=== PATIENT | female | born 1985 | race Hispanic/Latino ===

== ENCOUNTER → 2017-03-05 | Outpatient (CLI) | payer BC ==
[2017-03-05 15:32] LABS: BASO # 0.1 10^3/uL (0.0-0.2); EOS # 0.1 10^3/uL (0.0-0.50); EOS % 1.7 % (0.0-3.0); IMMATURE GRANULOCYTE % 0.4 % (0-0); LYMPH # 2.3 10^3/uL (1.5-6.5); LYMPH % 29.3 % (24.0-44.0); MEAN CORPUSCULAR HEMOGLOBIN 28.4 pg (27.0-33.0); MEAN CORPUSCULAR HGB CONC 33.4 g/dl (32.0-36.5); MEAN CORPUSCULAR VOLUME 84.9 fl (80.0-96.0); MONO # 0.4 10^3/uL (0.0-0.8); MONO % 5.2 % (0.0-5.0); NEUTROPHILS # 4.9 10^3/uL (1.8-7.7); NEUTROPHILS % 62.4 % (36.0-66.0); PLATELET COUNT, AUTOMATED 317 10^3/uL (150-450); RED CELL DISTRIBUTION WIDTH 13.1 % (11.5-14.5); WHITE BLOOD COUNT 7.9 10^3/uL (4.0-10.0)
[2017-03-05 15:54] LABS: ERYTHROCYTE SEDIMENTATION RATE 3 mm/hr (0-20)
[2017-03-05 16:13] LABS: ALBUMIN 4.1 GM/DL (3.2-5.2); ALBUMIN/GLOBULIN RATIO 1.28 (1.00-1.93); ALKALINE PHOSPHATASE 86 U/L (45-117); ALT/SGPT 26 U/L (12-78); ANION GAP 8 MEQ/L (8-16); AST/SGOT 17 U/L (7-37); BILIRUBIN,TOTAL 0.5 MG/DL (0.2-1.0); BLOOD UREA NITROGEN 11 MG/DL (7-18); CALCIUM LEVEL 9.1 MG/DL (8.5-10.1); CARBON DIOXIDE LEVEL 26 MEQ/L (21-32); CHLORIDE LEVEL 106 MEQ/L (98-107); CREATININE FOR GFR 0.74 MG/DL (0.55-1.02); GLOMERULAR FILTRATION RATE > 60.0 (>60); GLUCOSE, FASTING 66 MG/DL (70-105); POTASSIUM SERUM 4.5 MEQ/L (3.5-5.1); SODIUM LEVEL 140 MEQ/L (136-145); TOTAL PROTEIN 7.3 GM/DL (6.4-8.2)
[2017-03-09 13:56] LABS: ALBUMIN 4.36 GM/DL (3.29-5.55); ALBUMIN % 59.7 % (55.8-66.1); GAMMA GLOBULIN % 13.7 % (11.1-18.8)
[2017-03-11 00:07] LABS: Lyme Disease IgG/IgM Antibodie <0.91 ISR (0.00-0.90); Lyme Disease IgM Ab Quantitati <0.80 index (0.00-0.79); SJOGREN'S ANTI SS-A <0.2 AI (0.0-0.9); SJOGREN'S ANTI SS-B <0.2 AI (0.0-0.9); VITAMIN E LEVEL 9.7 mg/L (5.3-16.8)
== END ==
LOC: M LABNEURO 10:36
PROVIDERS: ATTEND Psychiatry & Neurology Neurology
DX: R93.0 Abnormal findings on diagnostic imaging of skull and head, not elsewhere classified (principal); G31.89 Other specified degenerative diseases of nervous system